=== PATIENT | female | born 1950 | race Caucasian/White ===

== ENCOUNTER 2018-09-26 18:15 | Emergency (ER) | payer SELFPAY ==
[~2018-09-26] VITALS: Ht 162.6 cm; Wt 74.8 kg
[~2018-09-26 18:15] MED LIST: ALEVE220 M1 PO; AUGMENTIN 875-1 EACH PO; NORCO 5-325 TA1 EACH PO
== END 2018-09-26 22:45 | disposition home or self-care (01) ==
LOC: ED 18:15
DX: R51 Headache (principal); F17.200 Nicotine dependence, unspecified, uncomplicated
CPT/HCPCS: 96361; 96374; 96375; 99283-25; J1200; J1885; J2765; J7030